=== PATIENT | male | born 1970 | race American Indian/Alaskan Native ===

== ENCOUNTER 2017-04-08 07:39 | Emergency (ER) | payer OTHER ==
[2017-04-08 07:46] VITALS: BP 159/97; PULSE 99; RESP 18; TEMP 98.3; O2SAT 95
[2017-04-08] MEDS ORDERED: Naproxen 550 mg Tab PO STA (08:26)
--- NOTE | 2017-04-08 08:28 | C.PDOC ---
History Of Present Illness 46 y/o male, with no significant PMHx, present to ED for evaluation of right ear pain for the last 2 days. Pt denies ear discharge, fever/chills, sore throat , rhinorrhea, cough, shortness of breath, trauma/injury. Time Seen by Provider: 04/08/17 08:16 Chief Complaint (Nursing): ENT Problem History Per: Patient History/Exam Limitations: None Onset/Duration Of Symptoms: Days (2) Current Symptoms Are (Timing): Still Present Quality (Ear): Pain W/Touch. denies: Redness, Swelling, Discharge, Foreign Body Quality (Mouth/Throat): denies: Tenderness, Swelling Symptoms Have Been: Continuous Severity: Mild Past Medical History Reviewed: Historical Data, Nursing Documentation, Vital Signs Vital Signs: Last Vital Signs Temp 98.3 F 04/08/17 07:43 Pulse 99 H 04/08/17 07:43 Resp 18 04/08/17 07:43 BP 159/97 H 04/08/17 07:43 Pulse Ox 95 04/08/17 09:55 - Medical History PMH: No Chronic Diseases Family History: States: No Known Family Hx - Social History Hx Alcohol Use: No Hx Substance Use: No - Immunization History Hx Influenza Vaccination: Yes Review Of Systems Except As Marked, All Systems Reviewed And Found Negative. Constitutional: Negative for: Fever, Chills ENT: Positive for: Ear Pain (right). Negative for: Ear Discharge, Nose Discharge, Nose Congestion, Mouth Swelling, Throat Pain Cardiovascular: Negative for: Chest Pain, Palpitations, Light Headedness Respiratory: Negative for: Cough, Shortness of Breath Gastrointestinal: Negative for: Nausea, Vomiting, Abdominal Pain, Diarrhea Skin: Negative for: Rash Neurological: Negative for: Headache Physical Exam - Physical Exam Appears: Well, Non-toxic, No Acute Distress Skin: Normal Color, Warm, Dry, No Rash Eye(s): bilateral: Normal Inspection Ear(s): Left: Normal, Right: TM Erythema (erythema and bulging TM), Other ( white discharge in the ear canal, no mastoid tenderness) Nose: Normal Oral Mucosa: Moist Tongue: Normal Appearing Lips: Normal Appearing Throat: Normal, No Erythema, No Exudate, No Drooling Neck: Normal ROM, Supple Lymphatic: Other (palpable postauricular lymph node right side) Chest: Symmetrical Cardiovascular: Rhythm Regular Respiratory: Normal Breath Sounds, No Rales, No Rhonchi, No Wheezing Neurological/Psych: Oriented x3, Normal Speech ED Course And Treatment O2 Sat by Pulse Oximetry: 95 (on RA) Pulse Ox Interpretation: Normal Progress Note: Pt was given PO Amoxicillin and Naproxen in ED. Rxs given for Amoxicillin, Naprosyn, and Ofloxacin otic drops. He was instructed to follow up with PMD in 1-2 days, and understands he should return to ED if symptoms worsen. Reevaluation Time: 08:45 Reassessment Condition: Improved Disposition Counseled Patient/Family Regarding: Studies Performed, Diagnosis, Need For Followup, Rx Given - Disposition Referrals: Isak Francisco DO [[facility]] - Disposition: HOME/ ROUTINE Disposition Time: 08:45 Condition: STABLE Additional Instructions: FOLLOW UP WITH YOUR DOCTOR IN 1-2 DAYS USE MEDICATIONS DIRECTED RETURN TO ER IF SYMPTOMS WORSEN Prescriptions: Amoxicillin 875 mg PO BID #14 tab Naproxen [Naprosyn Tab] 375 mg PO BID PRN #20 tab PRN Reason: pain Ofloxacin Otic 0.3% [Floxin 0.3% Otic Soln] 10 drop GT ONCE #1 bottle Instructions: Otitis Externa (ED), Otitis Media (ED) Forms: FFWD ([place]jib[place]ian) - Clinical Impression Clinical Impression: Otitis externa, Otitis media - Scribe Statement The provider has reviewed the documentation as recorded by the Scribdandy [employer] All medical record entries made by the Scribe were at my direction and personally dictated by me. I have reviewed the chart and agree that the record accurately reflects my personal performance of the history, physical exam, medical decision making, and the department course for this patient. I have also personally directed, reviewed, and agree with the discharge instructions and disposition.
[2017-04-08] MEDS ORDERED: Naproxen 550 mg Tab PO ONE (08:37)
== END 2017-04-08 08:58 | disposition home or self-care (01) ==
LOC: C.ER 07:39
DX: H60.91 Unspecified otitis externa, right ear (principal); H66.91 Otitis media, unspecified, right ear